=== PATIENT | male | born 2000 | race Caucasian/White ===

== ENCOUNTER → 2018-12-18 | Outpatient (REF) | payer OTHER ==
[2018-12-18 21:03] LABS: CHLAMYDIA DNA AMPLIFICATION NEGATIVE (NEGATIVE); GC DNA AMPLIFICATION NEGATIVE (NEGATIVE)
== END ==
LOC: M SFHCLERA 15:30
PROVIDERS: ATTEND Nurse Practitioner
DX: R30.9 Painful micturition, unspecified (principal)